=== PATIENT | female | born 1935 | race Two or more races ===

== ENCOUNTER 2018-03-05 02:21 | Inpatient (IN) | payer MEDICARE, MEDICAID ==
[~2018-03-05] VITALS: Ht 157.5 cm; Wt 55.4 kg
[2018-03-05 02:43] LABS: Basophils # (auto) 0 uL; Basophils % (auto) 0.6 % (0.0-2.0); Eosinophils # (auto) 0 uL; Eosinophils % (auto) 0.4 % (0.0-7.0); Hematocrit 35.5 % (36.0-46.0); Lymphocytes # (auto) 1.3 uL; Lymphocytes % (auto) 16.5 % (10.0-50.0); Mean Corpuscular Hemoglobin 31.7 pg (28.0-32.0); Mean Corpuscular Hgb Conc. 33.8 g/dL (32.0-36.0); Mean Corpuscular Volume 93.8 fL (80.0-100.0); Monocytes # (auto) 0.6 uL; Monocytes % (auto) 7.6 % (0.0-12.0); Neutrophils # (auto) 5.7 uL; Neutrophils % (auto) 74.9 % (37.0-80.0); Platelet Count (auto) 255 10^3/uL (140-450); Red Blood Cells 3.79 10^6/uL (4.0-5.20); White Blood Cell 7.6 10^3/uL (4.4-10.8)
[2018-03-05 03:29] LABS: Alanine Aminotransferase 29 U/L (13-56); Albumin 3.4 g/dL (3.4-5.0); Anion Gap 11 (5-15); Aspartate Aminotransferase 21 U/L (15-37); BUN/Creatinine Ratio 23.1; Blood Urea Nitrogen 18 mg/dL (7-18); Calcium 8.3 mg/dL (8.5-10.1); Carbon Dioxide 21 mmol/L (21-32); Chloride 110 mmol/L (98-107); GFR African American 91 mL/min; GFR Non-African American 75 mL/min; Glucose 117 mg/dL (74-106); Magnesium 2.2 mg/dL (1.6-2.6); Potassium 3.4 mmol/L (3.5-5.1); Sodium 142 mmol/L (136-145)
[2018-03-05] MEDS ORDERED: ONDANSETRON HCL 4 MG/2 ML VIAL IV ONE (03:30)
[2018-03-05] MEDS ORDERED: MEPERIDINE HCL (25 MG/ML) 1ML VIAL IV ONE (03:30)
[2018-03-05 03:34] LABS: Alkaline Phosphatase 82 U/L (45-117); Bilirubin, Total 0.6 mg/dL (0.2-1.0); Total Protein 6.7 g/dL (6.4-8.2)
[2018-03-05 03:45] LABS: INR 0.99 (0.9-1.15); Partial Thromboplastin Time 25.7 sec (23.78-33.04); Prothrombin Time 10.6 sec (9.27-12.13)
[2018-03-05 05:07] LABS: Urine Bacteria NONE SEEN /hpf (None Seen); Urine Blood 1+ /uL (Negative); Urine Mucus FEW (None Seen); Urine WBC <1 /hpf (0 - 5)
[2018-03-05] MEDS ORDERED: ONDANSETRON HCL 4 MG/2 ML VIAL IV PRN (06:15)
[2018-03-05] MEDS ORDERED: MORPHINE SULF(PF) 0.5MG/ML 10ML VIAL IV PRN (06:15)
[2018-03-05] MEDS ORDERED: NITROGLYCERIN 0.4 MG SL TAB SL PRN (06:15)
[2018-03-05] MEDS ORDERED: TEMAZEPAM 15 MG CAP PO PRN (06:15)
[2018-03-05] MEDS ORDERED: ACETAMINOPHEN 325 MG TAB PO PRN (06:15)
[2018-03-05] MEDS: ISOSORBIDE MONONITRATE 60 MG TAB PO SCH (10:00)
[2018-03-05] MEDS: ASPirin 81 mg TAB PO SCH (10:30)
[2018-03-05] MEDS: FAMOTIDINE 20 MG TAB PO SCH ×2 (10:31→22:14)
[2018-03-05] MEDS: CLOPIDOGREL BISULFATE 75 MG TAB PO SCH (10:31)
[2018-03-05] MEDS: ENOXAPARIN SOD 40 MG/0.4 ML SYRINGE SC SCH (10:32)
[2018-03-05] MEDS: METOPROLOL SUCCINATE XL 50 MG TAB PO SCH (10:36)
[2018-03-05 13:32] VITALS: BP 120/53
[2018-03-05 14:42] VITALS: BP 145/50
[2018-03-05] MEDS ORDERED: NITR0.4S29 SL (15:44)
[2018-03-05] MEDS ORDERED: MECL-87 PO (15:44)
[2018-03-05] MEDS ORDERED: CLOP75TA41 PO (15:44)
[2018-03-05] MEDS ORDERED: ATOR10TA52 PO (15:44)
[2018-03-05] MEDS ORDERED: METO25TA5 PO (15:44)
[2018-03-05] MEDS ORDERED: ISOS30TA4 PO (15:44)
[2018-03-05 17:09] VITALS: BP 128/53
[2018-03-05 22:00] VITALS: BP 129/47
[2018-03-05] MEDS: ATORVASTATIN 20 MG TAB PO SCH (22:14)
[2018-03-06 05:00] VITALS: BP 148/69
[2018-03-06 07:46] LABS: Basophils # (auto) 0 uL; Basophils % (auto) 0.6 % (0.0-2.0); Eosinophils # (auto) 0 uL; Eosinophils % (auto) 0.8 % (0.0-7.0); Hematocrit 39.4 % (36.0-46.0); Hemoglobin 13.2 g/dL (12.2-16.2); Lymphocytes # (auto) 1.1 uL; Lymphocytes % (auto) 19.8 % (10.0-50.0); Mean Corpuscular Hemoglobin 32.5 pg (28.0-32.0); Mean Corpuscular Hgb Conc. 33.5 g/dL (32.0-36.0); Mean Corpuscular Volume 97.1 fL (80.0-100.0); Monocytes # (auto) 0.5 uL; Neutrophils # (auto) 3.7 uL; Neutrophils % (auto) 69.8 % (37.0-80.0); Nucleated Red Blood Cells % 0.2 %; Platelet Count (auto) 228 10^3/uL (140-450); Red Blood Cells 4.06 10^6/uL (4.0-5.20); Red Cell Distribution Width 16.3 % (11.8-14.3); White Blood Cell 5.4 10^3/uL (4.4-10.8)
[2018-03-06 07:58] LABS: Albumin 2.8 g/dL (3.4-5.0); BUN/Creatinine Ratio 22.1; Bilirubin, Total 0.6 mg/dL (0.2-1.0); Calcium 8.2 mg/dL (8.5-10.1); Potassium 4.1 mmol/L (3.5-5.1)
[2018-03-06 08:00] VITALS: BP 147/63
[2018-03-06 09:00] VITALS: BP 147/63
[2018-03-06] MEDS: ASPirin 81 mg TAB PO SCH (09:27)
[2018-03-06] MEDS: CLOPIDOGREL BISULFATE 75 MG TAB PO SCH (09:27)
[2018-03-06] MEDS: FAMOTIDINE 20 MG TAB PO SCH ×2 (09:27→22:10)
[2018-03-06] MEDS: ISOSORBIDE MONONITRATE 60 MG TAB PO SCH (09:28)
[2018-03-06] MEDS: ENOXAPARIN SOD 40 MG/0.4 ML SYRINGE SC SCH (09:28)
[2018-03-06] MEDS: METOPROLOL SUCCINATE XL 50 MG TAB PO SCH (09:29)
[2018-03-06 12:54] VITALS: BP 144/67
[2018-03-06] MEDS ORDERED: PNEUMOCOCCAL VACC POLYS 25 MCG/0.5 ML VIAL IM ONE (16:30)
[2018-03-06 17:00] VITALS: BP 120/59
[2018-03-06 21:38] VITALS: BP 122/52
[2018-03-06] MEDS: ATORVASTATIN 20 MG TAB PO SCH (22:10)
[2018-03-07 05:00] VITALS: BP 149/61
[2018-03-07 09:24] VITALS: BP 130/63
[2018-03-07] MEDS: ISOSORBIDE MONONITRATE 60 MG TAB PO SCH (10:51)
[2018-03-07] MEDS: CLOPIDOGREL BISULFATE 75 MG TAB PO SCH (10:51)
[2018-03-07] MEDS: ASPirin 81 mg TAB PO SCH (10:51)
[2018-03-07] MEDS: FAMOTIDINE 20 MG TAB PO SCH ×2 (10:52→21:44)
[2018-03-07] MEDS: METOPROLOL SUCCINATE XL 50 MG TAB PO SCH (10:53)
[2018-03-07] MEDS: ENOXAPARIN SOD 40 MG/0.4 ML SYRINGE SC SCH (10:54)
[2018-03-07 12:38] VITALS: BP 111/64
[2018-03-07 16:36] VITALS: BP 130/58
[2018-03-07] MEDS ORDERED: PNEUMOCOCCAL VACC POLYS 25 MCG/0.5 ML VIAL IM ONE (18:00)
[2018-03-07] MEDS: ATORVASTATIN 20 MG TAB PO SCH (21:44)
[2018-03-07 22:00] VITALS: BP 123/51
[2018-03-08 05:00] VITALS: BP 147/62
[2018-03-08 09:00] VITALS: BP 131/48
[2018-03-08 10:00] VITALS: BP 125/60
[2018-03-08] MEDS ORDERED: ADENOSINE 47 MG in GIVE UN-DILUTED 0 ML IV ONE (10:15)
[2018-03-08] MEDS: ENOXAPARIN SOD 40 MG/0.4 ML SYRINGE SC SCH (11:31)
[2018-03-08] MEDS: CLOPIDOGREL BISULFATE 75 MG TAB PO SCH (11:32)
[2018-03-08] MEDS: METOPROLOL SUCCINATE XL 50 MG TAB PO SCH (11:32)
[2018-03-08] MEDS: ASPirin 81 mg TAB PO SCH (11:32)
[2018-03-08] MEDS: FAMOTIDINE 20 MG TAB PO SCH ×2 (11:32→21:34)
[2018-03-08] MEDS: ISOSORBIDE MONONITRATE 60 MG TAB PO SCH (11:33)
[2018-03-08 13:00] VITALS: BP 130/38
[2018-03-08 16:58] VITALS: BP 93/41
[2018-03-08] MEDS: ATORVASTATIN 20 MG TAB PO SCH (21:34)
[2018-03-08 22:00] VITALS: BP 121/47
[2018-03-09 05:00] VITALS: BP 126/59
[2018-03-09 09:00] VITALS: BP 129/55
[2018-03-09] MEDS: ASPirin 81 mg TAB PO SCH (10:03)
[2018-03-09] MEDS: FAMOTIDINE 20 MG TAB PO SCH (10:04)
[2018-03-09] MEDS: ISOSORBIDE MONONITRATE 60 MG TAB PO SCH (10:04)
[2018-03-09] MEDS: CLOPIDOGREL BISULFATE 75 MG TAB PO SCH (10:05)
[2018-03-09] MEDS: ENOXAPARIN SOD 40 MG/0.4 ML SYRINGE SC SCH ×2 (10:06→10:07)
[2018-03-09] MEDS: METOPROLOL SUCCINATE XL 50 MG TAB PO SCH (10:06)
[2018-03-09 13:00] VITALS: BP 131/61
[2018-03-09 15:36] VITALS: BP 130/62
== END 2018-03-09 17:45 | disposition home health service (06) | DRG 313 ==
LOC: ER 02:27 → TELE 02:28 → TELE-EAST 09:05
PROVIDERS: ADMIT Nurse Practitioner; ATTEND Internal Medicine
DX: R07.9 Chest pain, unspecified (principal); I10 Essential (primary) hypertension; I48.2 Chronic atrial fibrillation; E78.5 Hyperlipidemia, unspecified; I25.10 Atherosclerotic heart disease of native coronary artery without angina pectoris; K21.9 Gastro-esophageal reflux disease without esophagitis; Z82.49 Family history of ischemic heart disease and other diseases of the circulatory system; Z86.718 Personal history of other venous thrombosis and embolism; Z79.02 Long term (current) use of antithrombotics/antiplatelets; Z88.5 Allergy status to narcotic agent; Z79.899 Other long term (current) drug therapy; Z23 Encounter for immunization
CPT/HCPCS: 36415; 51702; 70450; 71045; 78452; 80053; 81001; 82962; 83605; 83735; 83880; 84443; 84484; 85025; 85379; 85610; 85730; 87040; 93005; 93017; 93306; 93970; 94761; 96374; 96375; J0153; J2405